=== PATIENT | male | born 1975 | race Caucasian/White ===

== ENCOUNTER 2022-10-20 19:26 | Emergency (ER) | payer OTHER, SELFPAY ==
[2022-10-20 19:36] VITALS: BP 142/97; PULSE 77; RESP 16; TEMP 36.4; O2SAT 99
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
[2022-10-20] MEDS: methylPREDNISolone ACETATE 80 MG/ML VIAL IM (20:02)
== END 2022-10-20 20:06 | disposition home or self-care (01) ==
PROVIDERS: Emergency Provider Registered Nurse; PCP Family Medicine
DX: L25.5 Unspecified contact dermatitis due to plants, except food (principal); I10 Essential (primary) hypertension
CPT/HCPCS: 96372; 99203; G0463; J1040

== ENCOUNTER 2025-07-26 23:27 | Emergency (ER) | payer SELFPAY ==
--- OUTSIDE RECORDS SUMMARY | 2025-07-19 03:39 | XMS_ITS | Continuity of Care Document ---
[facility] Organization [facility] Address [address] [place] [address] Phone Care Team Providers Care Seasonal Customer Service Associate Name Role Phone Radhika Bingham PT Unavailable Unavailable Procedures Procedure Date Therapeutic Activities Therapeutic Exercise Therapeutic Activities Manual Therapy Hot or Cold Pack Therapeutic Exercise Therapeutic Activities Therapeutic Exercise Therapeutic Activities Therapeutic Exercise Therapeutic Activities Therapeutic Exercise Therapeutic Activities Therapeutic Exercise Hot or Cold Pack Therapeutic Activities Therapeutic Exercise Manual Therapy Therapeutic Activities Therapeutic Exercise Manual Therapy Therapeutic Activities Neuromuscular Re-Ed Therapeutic Exercise Hot or Cold Pack Therapeutic Activities Neuromuscular Re-Ed Therapeutic Exercise Manual Therapy Hot or Cold Pack PT Evaluation Moderate Complexity Therapeutic Activities Therapeutic Exercise Advance Directives Directive Yes / No Effective Date File Name No Information Encounters Encounter Description Practice Location Reason(s) For Visit Diagnoses Date Provider Providers Copied on Encounter [facility], [address], [place], [place], [id number], [place] tel:[phone] [place] No Information Dec-0 5-202 5 Ashmann Radhika. . [facility] [address], [place], [place], [id number], tel:[phone] [place] No Information Nov-2 4-202 5 [place] Cyrus. . Referring Provider: Nguyen Torrez, [address] [place] [address], [address]. tel:[phone] [facility] [address], [place], [place], [id number], [place] tel:[phone] [place] No Information Jun-1 2-202 5 Ashmann Radhika. . Referring Provider: Nguyen Torrez, [address] [place] [address], [address]. tel:[phone], [place], [place], [id number], [place] tel:[phone] [place] No Information Nov-0 5-202 5 [place] Cyrus. . Referring Provider: Nguyen Torrez, [address] [place] [address], [address]. tel:[phone] [facility] [address], [place], [place], [id number], [place] tel:[phone] [place] No Information May-2 9-202 5 [place] Cyrus. . Referring Provider: Nguyen Torrez, [address] [place] [address], [address]. tel:[phone] [facility] [address], [place], [place], [id number], [place] tel:[phone] [place] No Information May-2 7-202 5 [place] Cyrus. . Referring Provider: Nguyen Torrez, [address] [place] [address], [address]. tel:[phone] [facility] [address], [place], [place], [id number], [place] tel:[phone] [place] No Information Oct-2 2-202 5 Ashmann Radhika. . Referring Provider: Nguyen Torrez, [address] [place] [address], [address]. tel:[phone] [facility], [address] [place] [address] [address], [place], [place], [id number], [place] tel:[phone] [place] No Information Oct-2 0-202 5 Ashmann Radhika. . Referring Provider: Nguyen Torrez, [address] [place] [address], [address]. tel:[phone], [place], [place], [id number], [place] tel:[phone] [place] No Information Oct-1 5-202 5 Ashmann Radhika. . Referring Provider: Nguyen Torrez, [address] [place] [address], [address]. tel:[phone] [place] [address], [facility] [address], [place], [place], [id number], [place] tel:[phone] [place] No Information Oct-1 3-202 5 Ashmann Radhika. . Referring Provider: Nguyen Torrez, [address] [place] [address], [address]. tel:[phone], [place], [place], [id number], [place] tel:[phone] [place] No Information Oct-1 0-202 5 Ashmann Radhika. . Referring Provider: Nguyen Torrez, [address] [place] [address], [address]. tel:[phone], [place], [place], [id number], [place] tel:[phone] [place] No Information Oct-0 8-202 5 Ashmann Radhika. . Referring Provider: Nguyen Torrez, [address] [place] [address], [address]. tel:[phone] Family History Family Member Type Diagnosis Age At Onset No Information Payers Payer name Insurance type Covered alliance party ID Authoriza tiveronika(s) [facility] [employer] [place] [id number] Social History Type Description Quantity Date Captured Comments Sex Male Smoking Status No Information Chief Complaint And Reason For Visit No Information Reason For Referral Reason For Referral No Information History Of Present Illness Encounter Date Complaint History Of Prese nt Illness No Information Functional Status Date Functional Assessmen t No Information Instructions Date Instruction Additional Infor mation No Information Assessments Type Assessment Date No Information Patient Care Teams Name Effective Dates (start - stop) Status Members No Information
--- NOTE | ~2025-07-26 | XR_ITS ---
Examination: XR chest 2V Clinical History: chest pain Comparison: None Technique: PA and Lateral Findings: Cardiomediastinal silhouette normal size and configuration. Lungs clear. No acute bony abnormality. IMPRESSION: 1. No acute cardiopulmonary findings. Reviewed, dictated and finalized at location R. ATOR
--- NOTE | 2025-07-26 23:33 | ECG_ITS ---
Test Date: 2025-07-26 23:40:36 Measurements Intervals [place] Rate: 90 P: 40 VA: 148 QRS: 46 QRSD: 97 T: -7 QT: 334 QTc: 410 Interpretive Statements SINUS RHYTHM BORDERLINE ST-T WAVE ABNORMALITY- INFERIOR LEADS BASELINE ARTIFACT- I, II, III, AVR, AVL BORDERLINE ECG No previous ECG available for comparison Electronically Signed On 07-27-2025 08:32:16 [employer]ESSIONAL [employer] by Vasquez Cordero D.O.
[2025-07-26 23:34] VITALS: BP 155/91; PULSE 99; RESP 16; O2SAT 99
[2025-07-26 23:46] VITALS: BP 148/89; PULSE 96; RESP 18; O2SAT 97
[2025-07-26 23:58] LABS: Hematocrit 44.4 % (42.0-52.0); Hemoglobin 15.8 g/dL (14.0-18.0); Immature Granulocyte Percent A 0.4 % (0-0.5); Lymphocytes Absolute Auto 2.81 K/mm3 (0.9-3.2); Mean Corpuscular HGB Conc 35.6 g/dl (32-36); Mean Corpuscular Hemoglobin 30.9 pg (26-34); Mean Corpuscular Volume 86.9 fl (80-100); Nucleated Red Blood Cells Absolute Auto 0.000 K/mm3 (0.0-0.012); Nucleated Red Blood Cells Perc 0.0 % (0.0-0.2); Platelet Count Result 228 k/mm3 (150-375); Red Blood Count 5.11 M/mm3 (4.6-6.20); White Blood Count 9.4 K/mm3 (4.5-10.0)
[2025-07-27] VITALS (13 sets, daily range): BP systolic 134–155; BP diastolic 81–89; PULSE 88–96; RESP 15–20; TEMP 36.6–36.8; O2SAT 95–97
[2025-07-27 00:09] LABS: Alanine Aminotransferase 66 U/L (6-50); Albumin Level 4.5 g/dL (3.5-5.1); Alkaline Phosphatase 83 U/L (38-126); Anion Gap 6 mmol/L (4-12); Aspartate Amino Transferase 39 U/L (17-59); Bilirubin,Total 0.5 mg/dL (0.2-1.3); Blood Urea Nitrogen 18 mg/dL (9-20); Calcium 9.5 mg/dL (8.4-10.2); Carbon Dioxide 25 mmol/L (22-30); Chloride 107 mmol/L (98-107); Estimated Glomerular Filt Rate > 60; Glucose 137 mg/dL (65-110); Lipase 166 U/L (23-300); Potassium 3.7 mmol/L (3.4-5.0); Sodium 138 mmol/L (137-145); Total Protein 7.4 g/dL (6.3-8.2)
[2025-07-27 00:13] LABS: INR 0.9; Prothrombin Time 12.5 Seconds (11.1-14.7)
[2025-07-27 00:14] LABS: Partial Thromboplastin Time 26.6 Seconds (22.3-36.8)
[2025-07-27] MEDS: ASPIRIN 81 MG CHEWABLE TABLET 324 MG PO (00:18)
[2025-07-27 00:21] LABS: Troponin I < 0.012 ng/mL (0.000-0.034)
--- OUTSIDE RECORDS SUMMARY | 2025-07-27 00:23 | XMS_ITS | Patient Health Record ---
Author Organization [facility] Address [address] [place], [place] [id number] Care Team Providers Care Legal Librarian Name Role Phone MATTIE RICE Unavailable [phone] Faustino Weber Unavailable Unavailable Reason For Referral No Information Social History Social History Additional Details Category Social Info Options Details Migrated Social History Migrated Social History Smoking Status : Former smoker , Alcohol intake : , History of tobacco use : Plan Of Treatment No Information Insurance Providers Payer Name Payer Address Payer Phone Subscriber Number Group Number Insured Name Patient Relationship to Insured Coverage Start Date Coverage End Date [facility] [address] [place] [address] [id number] JESSICA SUMNER Self - patient is the insured
--- NOTE | 2025-07-27 02:17 | ECG_ITS ---
Test Date: 2025-07-27 02:22:11 Measurements Intervals [place] Rate: 82 P: 50 NH: 188 QRS: 51 QRSD: 84 T: -3 QT: 313 QTc: 368 Interpretive Statements SINUS RHYTHM DELAYED PRECORDIAL R/S TRANSITION BORDERLINE ST-T WAVE ABNORMALITY- INFERIOR LEADS BASELINE ARTIFACT- I, III, AVR, AVL, AVF BORDERLINE ECG Compared to ECG 07/26/2025 23:40:36 No significant changes Electronically Signed On 07-27-2025 08:05:32 SHOOK SPLICER by Vasquez Cordero D.O.
[2025-07-27 02:51] LABS: Troponin I < 0.012 ng/mL (0.000-0.034)
--- NOTE | 2025-07-27 02:57 | ED_ITS ---
HPI - Chest Pain General Chief Complaint: Chest Pain Stated Complaint: chest pain Time Seen by Provider: 07/26/25 23:40 History of Present Illness HPI narrative: 50-year-old male presenting with concerns for middle to left-sided chest pain that radiates to his neck. Patient states he had bed going down stairs when the chest pain began. Patient rates the pain a 4-5/10. Denies nausea/vomiting, dizziness, headache, diaphoresis, abdominal pain, or shortness of breath. Patient's only pertinent medical history includes hypertension. Related Data Home Medications ?Medication ?Instructions ?Recorded ?Confirmed ?Last Taken ?Type amlodipine 5 mg tablet 5 mg PO DAILY 10/20/2210/20 Unknown History Allergies Allergy/AdvReac Type Severity Reaction Status Date / Time No Known Allergies Allergy Verified 07/26/25 23:28 Review of Systems 2 Review of Systems: All systems reviewed & are unremarkable except as noted in HPI and below PMFSH Past Medical History Medical History (Updated 07/27/25 @ 03:01 by LUIS ALBERTO Bacon) Hypertension Social History Social History (Updated 10/20/22 @ 20:13 by Elicia Araujo APRN) Living arrangements: with family Gender identity (if verbalized by the patient): Male Exam 2 Narrative: GENERAL: Well-appearing, well-nourished, and in no acute distress. HEAD: Normocephalic, atraumatic. EYES: PERRLA and EOMI. ENT: Nares clear, no rhinorrhea or epistaxis. Mucous membranes moist. Oropharynx without tonsillar hypertrophy exudate or other lesions. Bilateral TMs pearly guerin non-bulging NECK: Supple. No adenopathy or masses. No carotid bruits or JVD CHEST: Clear to auscultation. No respiratory distress. No wheezes rales or rhonchi HEART: Regular rate and rhythm. No murmur heard. Normal peripheral pulses. ABDOMEN: Soft, nontender, nondistended, normal active bowel sounds. EXTREMITIES: Normal range of motion. No edema. SKIN: Warm, dry, no rash. NEURO: No focal deficits. Alert and oriented x3. PSYCH: Normal mood and affect Course Vital Signs Vital signs: Vital Signs Pulse Rate 99 07/26/25 23:34 Respiratory Rate 16 07/26/25 23:34 Blood Pressure 155/91 H 07/26/25 23:34 Pulse Oximetry 99 07/26/25 23:34 Temperature 98.2 F 07/27/25 03:07 Pulse Rate 95 07/27/25 03:07 Respiratory Rate 20 07/27/25 03:07 Blood Pressure 140/81 07/27/25 03:07 Pulse Oximetry 96 07/27/25 03:07 Oxygen Delivery Room Air 07/27/25 00:17 [facility] Narrative Medical decision making narrative: 50-year-old male presenting with concerns for middle to left-sided chest pain that radiates to his neck. Patient states he had bed going down stairs when the chest pain began. Patient rates the pain a 4-5/10. Denies nausea/vomiting, dizziness, headache, diaphoresis, abdominal pain, or shortness of breath. Patient's only pertinent medical history includes hypertension. Upon my initial assessment patient appears nontoxic with stable vitals reporting that all of his symptoms have resolved. Patient's EKGs and labs are without significant high risk changes. EKG w/o acute ischemic changes. Troponin negative. Cardiac risk factors reviewed. HEART score = 3. Patient is felt likely low risk for ACS and reasonable for further risk stratification testing as an outpatient. Pain was not sudden or maximal in onset without tearing or ripping quality. No other signs or symptoms to suggest aortic dissection. A low-risk Wells criteria is noted, PE is felt to be unlikely. No pneumonia seen on evaluation today. Patient states he and his primary have discussed scheduling a stress test in the near future. Patient is felt to be a reasonable candidate for continued evaluation as an outpatient. Given reasons to return. Differential Diagnosis Differential Diagnosis: Differential diagnostic considerations for chest pain include ACS, aortic dissection, pneumothorax, pulmonary embolus, konrad/pericarditis, angina, STEMI, esophageal abnormality, GI etiology, pneumonia, rib fracture, biliary colic, atypical/non-cardiac (MSK, etc). Lab Data [facility] Lab Attestation statement: I personally reviewed the patient's lab results. 07/26/25 23:53 07/26/25 23:52 Labs: Lab Results 07/26/25 07/26/25 07/27/25 Range/Units 23:52 23:53 02:21 WBC 9.4 (4.5-10.0) K/mm3 RBC 5.11 (4.6-6.20) M/mm3 Hgb 15.8 (14.0-18.0) g/dL Hct 44.4 (42.0-52.0) % MCV 86.9 (80-100) fl MCH 30.9 (26-34) pg MCHC 35.6 (32-36) g/dl RDW 12.4 (11.5-14.5) % Plt Count 228 (150-375) k/mm3 MPV 8.9 (7.4-10.4) fl Immature Gran % (Auto) 0.4 (0-0.5) % Neut % (Auto) 57.2 (45.5-73.1) % Lymph % (Auto) 29.9 (18.3-44.2) % [place] % (Auto) 9.1 H (2.6-8.5) % Eos % (Auto) 2.9 (0-4.4) % Baso % (Auto) 0.5 (0.2-1.2) % Lymph # (Auto) 2.81 (0.9-3.2) K/mm3 [place] # (Auto) 0.9 H (0.1-0.6) K/mm3 Eos # (Auto) 0.3 (0-0.3) K/mm3 Baso # (Auto) 0.1 (0.0-0.1) K/mm3 Abs Immat Gran (auto) 0.04 H (0.00-0.031) K/mm3 Absolute Neuts (auto) 5.4 (1.3-6.7) K/mm3 Absolute Nucleated RBC 0.000 (0.0-0.012) K/mm3 Nucleated RBC % 0.0 (0.0-0.2) % PT 12.5 (11.1-14.7) Seconds INR 0.9 APTT 26.6 (22.3-36.8) Seconds Sodium 138 (137-145) mmol/L Potassium 3.7 (3.4-5.0) mmol/L Chloride 107 (98-107) mmol/L Carbon Dioxide 25 (22-30) mmol/L Anion Gap 6 (4-12) mmol/L BUN 18 (9-20) mg/dL Creatinine 0.87 (0.7-1.3) mg/dL Estim Creat Clear Calc Not Reportable Estimated GFR > 60 (59 - ) Glucose 137 H (65-110) mg/dL Calcium 9.5 (8.4-10.2) mg/dL Total Bilirubin 0.5 (0.2-1.3) mg/dL AST 39 (17-59) U/L ALT 66 H (6-50) U/L Alkaline Phosphatase 83 (38-126) U/L Troponin I < 0.012 < 0.012 (0.000-0.034) ng/mL Total Protein 7.4 (6.3-8.2) g/dL Albumin 4.5 (3.5-5.1) g/dL Lipase 166 (23-300) U/L Imaging Data Attestation: I personally reviewed and interpreted this imaging study as follows: Radiologist's impression: ITS Impressions Chest X-Ray 07/27/25 06:38 IMPRESSION: 1. No acute cardiopulmonary findings. ECG Data EKG #1: ECG completion date: 07/26/25 ECG completion time: 23:40 normal rate, sinus rhythm and no acute changes EKG #2: ECG completion date: 07/27/25 ECG completion time: 02:22 normal rate, sinus rhythm and no acute changes Discharge Plan Discharge Clinical Impression: Chest pain Patient Disposition: Home Condition: Stable Instructions: Chest Pain (ED) Additional Instructions: Return to the Emergency Department if you experience fever, chest pain, shortness of breath, or any other symptoms that are concerning to you Take your home medications as prescribed. Follow up with your primary care doctor. Patient Language: Amharic Prescriptions: No Action amlodipine 5 mg Tablet 5 mg PO DAILY triamcinolone acetonide 0.1 % ointment 1 applic topical BID Qty: 80 0RF prednisone 10 mg tablet 10 mg PO DIRECTED Qty: 21 0RF Rx Instructions: see taper instructions 6 tabs day 1, 5 tabs day 2, 4 tabs day 3, 3 tabs day 4, 2 tabs day 1 tab day 6 Follow-up/Referrals: Michaelle,Alex Buenrostro MD [Primary Care Provider] Quality HEART score for chest pain patients History: slightly suspicious ECG: normal Age: > 45 and < 65 years Risk factors: > or = to 3 risk factors of atherosclerotic disease Troponin: < or = to 1x normal limit Heart score: 3
== END 2025-07-27 03:06 | disposition home or self-care (01) ==
PROVIDERS: Student in an Organized Health Care Education/Training Program; PCP Family Medicine
DX: R07.9 Chest pain, unspecified (principal); I10 Essential (primary) hypertension; R94.31 Abnormal electrocardiogram [ECG] [EKG]
CPT/HCPCS: 36415; 71046; 80053; 83690; 84484; 85025; 85610; 85730; 93005; 99284; A9270